=== PATIENT | female | born 1950 | race Hispanic/Latino ===

== ENCOUNTER → 2022-01-15 | Outpatient (CLI) | payer OTHER ==
[~2022-01-15] MED LIST: APIX5TAB PO; ASPI-1197 PO; ATOR40TA71 PO; GLIP5TAB11 PO; METF-444 PO; METO25TA6 PO; NAPR-1192 PO; SITA100T12 PO
== END | disposition home or self-care (01) ==
LOC: OIH 09:28
PROVIDERS: ATTEND Internal Medicine Cardiovascular Disease
DX: R09.89 Other specified symptoms and signs involving the circulatory and respiratory systems (principal); I25.10 Atherosclerotic heart disease of native coronary artery without angina pectoris; I48.0 Paroxysmal atrial fibrillation; I10 Essential (primary) hypertension; I87.2 Venous insufficiency (chronic) (peripheral); E78.5 Hyperlipidemia, unspecified; E11.9 Type 2 diabetes mellitus without complications
CPT/HCPCS: 93880